=== PATIENT | male | born 1995 | race Caucasian/White ===

== ENCOUNTER 2021-04-29 10:04 | Emergency (ER) | payer OTHER ==
[~2021-04-29] VITALS: Ht 182.9 cm; Wt 87.0 kg
[2021-04-29 10:32] VITALS: BP 140/66
[2021-04-29] MEDS ORDERED: ketorolac tromethamine 15mg/ml inj. IM ONE (11:30)
== END 2021-04-29 12:06 | disposition home or self-care (01) ==
LOC: ER 10:05
DX: S93.402A Sprain of unspecified ligament of left ankle, initial encounter (principal); X50.1XXA Overexertion from prolonged static or awkward postures, initial encounter; Y93.89 Activity, other specified; Y92.89 Other specified places as the place of occurrence of the external cause; Y99.8 Other external cause status
CPT/HCPCS: 73610; 73660; 96372; 99284; J1885

== ENCOUNTER 2021-09-23 08:58 | Emergency (ER) | payer OTHER ==
[~2021-09-23] VITALS: Ht 182.9 cm; Wt 78.2 kg
[2021-09-23 09:24] VITALS: BP 138/69
[2021-09-23] MEDS ORDERED: ORPH100T2 PO (12:14)
[2021-09-23] MEDS ORDERED: NAPR-56 PO (12:14)
[2021-09-23] MEDS ORDERED: HYDR-3965 PO (12:14)
== END 2021-09-23 12:50 | disposition home or self-care (01) ==
LOC: ER 08:58
DX: S22.080A Wedge compression fracture of T11-T12 vertebra, initial encounter for closed fracture (principal); Z79.899 Other long term (current) drug therapy; X50.3XXA Overexertion from repetitive movements, initial encounter; Y93.89 Activity, other specified; Y92.89 Other specified places as the place of occurrence of the external cause; Y99.8 Other external cause status
CPT/HCPCS: 72100; 72148; 99284